=== PATIENT | female | born 1960 | race Caucasian/White ===

== ENCOUNTER 2017-11-25 09:11 | Day surgery (SDC) | payer BC ==
[~2017-11-25] VITALS: Ht 167.6 cm; Wt 65.4 kg
[~2017-11-25 09:11] MED LIST: ASPI325; Advil200 M1; LORA.5; THYR60
== END 2017-11-25 11:35 | disposition home or self-care (01) ==
LOC: ORSCSDS 09:11
PROVIDERS: Surgery
PROC: 0DBK8ZX Excision of Ascending Colon, Via Natural or Artificial Opening Endoscopic, Diagnostic (ICD-10-PCS; principal; 2017-11-25 10:30)
DX: Z12.11 Encounter for screening for malignant neoplasm of colon (principal); D12.2 Benign neoplasm of ascending colon; Z86.010 Personal history of colon polyps; Z80.0 Family history of malignant neoplasm of digestive organs; E03.9 Hypothyroidism, unspecified; Z79.899 Other long term (current) drug therapy; Z87.891 Personal history of nicotine dependence
CPT/HCPCS: 88305

== ENCOUNTER 2020-12-19 05:59 | Day surgery (SDC) | payer BC ==
[~2020-12-19] VITALS: Ht 167.6 cm; Wt 64.2 kg
[~2020-12-19 05:59] MED LIST changes: -Advil200 M1; +IBUP200 PO; -LORA.5; +LORA.5 PO; +MULVITA PO; -THYR60; +THYR60 PO
--- NOTE | 2020-12-19 06:50 | NUR ---
Ambulatory in Day Surgery History, Chart, Medications and Allergies reviewed before start of procedure. Lungs clear T/O to Auscultation. Pre-Op teaching done. Pt verbalizes understanding.
--- NOTE | 2020-12-19 09:24 | NUR ---
FROM PACU TO STEP VSS RECIEVED REPORT GIVEN COFFEE AND WATER PER REQUEST.
--- NOTE | 2020-12-19 10:41 | NUR ---
Discharge instructions reviewed with patient. Patient verbalizes understanding. Copy given to patient to take home. Patient States Post-Procedure ride home has been arranged. Discharged via wheelchair to private car for ride home.
== END 2020-12-19 22:59 | disposition home or self-care (01) ==
LOC: ORSCMMR 05:59 → ORD 07:30 → ORSCMMR 22:59
PROVIDERS: Surgery
PROC: BF131ZZ Fluoroscopy of Gallbladder and Bile Ducts using Low Osmolar Contrast (ICD-10-PCS; principal; 2020-12-19 07:30)
PROC: 0FT44ZZ Resection of Gallbladder, Percutaneous Endoscopic Approach (ICD-10-PCS; principal; 2020-12-19 07:30)
DX: K80.20 Calculus of gallbladder without cholecystitis without obstruction (principal); Z87.891 Personal history of nicotine dependence; K21.9 Gastro-esophageal reflux disease without esophagitis; Z79.899 Other long term (current) drug therapy
CPT/HCPCS: 74300; 88304; A9270; C1729; J0690; J1100; J1885; J2250; J2405; J2704; J2710; J2765; J3010; J7120